=== PATIENT | female | born 1990 | race African-American/Black ===

== ENCOUNTER → 2017-02-02 | Outpatient (CLI) | payer OTHER ==
[~2017-02-02] MED LIST: NORC5TAB PO; PERC5TAB12 PO; PNV11TAB CHEW
[2017-02-02 09:13] LABS: BACTERIA, URINE OCC /hpf; BLOOD, URINE NEG (NEG); GLUCOSE,URINE NEG (NEG); KETONE, URINE NEG (NEG); MUCUS URINE FEW /lpf (OCC); NITRITE,URINE NEG (NEG); PH, URINE 6.5 (5.0-8.5); SQUAMOUS EPITHELIAL CELL URINE 4 /hpf (0-5); URINE COLOR YELLOW (YELLW/STRAW)
[2017-02-02 09:22] LABS: AUTOMATED NEUTROPHIL # 5.6 TH/MM3 (1.8-7.7); BASOPHIL % 0.5 % (0.0-2.0); EOSINOPHIL # 0.1 TH/MM3 (0-0.4); EOSINOPHIL % 1.1 % (0.0-4.0); HEMATOCRIT 35.8 % (35.0-46.0); HEMO FLAGS DIFF FINAL; LYMPH % 21.2 % (9.0-44.0); LYMPHOCYTE # 1.8 TH/MM3 (1.0-4.8); MEAN CELL VOLUME 87.7 FL (80.0-100.0); MEAN CORPUSCULAR HEMOGLOBIN 28.6 PG (27.0-34.0); MEAN CORPUSCULAR HGB CONC 32.6 % (32.0-36.0); MONO % 10.2 % (0.0-8.0); PLATELET COUNT 390 TH/MM3 (150-450); RED BLOOD COUNT 4.08 MIL/MM3 (4.00-5.30); WHITE BLOOD COUNT 8.3 TH/MM3 (4.0-11.0)
== END ==
LOC: CPRE 07:54
PROVIDERS: ATTEND Obstetrics & Gynecology
DX: Z01.812 Encounter for preprocedural laboratory examination (principal); O34.30 Maternal care for cervical incompetence, unspecified trimester
CPT/HCPCS: 36415; 81001; 85025

== ENCOUNTER → 2017-02-06 | Day surgery (SDC) | payer OTHER ==
[~2017-02-06] VITALS: Ht 152.4 cm; Wt 96.6 kg
[~2017-02-06] MED LIST changes: +CHLORHEXIDINE GLUCONATE 2 % 1 PACK (2 CLOTHS) TOPICAL PRN; +DO NOT ADM ANY ANTICOAGULANT DRUGS PRN; +INSULIN HUMAN REGULAR 1,000 UNITS/10 ML VIAL SQ PRN; +LACTATED RINGER'S 1000 ML IV PRN; +METOPROLOL TARTRATE 25 MG TAB PO PRN; -NORC5TAB PO; +PHENYLEPH/NS 1000 MCG/10 ML SYR IV ONE; +POVIDONE IODINE 5% (ANTISEPSIS KIT) 4 APPLICATIONS EACH NARE PRN; +SODIUM CHLORID 0.9% 500 ML IV PRN; +ceFAZolin 2 GM PREMIX 50 ML IV SCH
[2017-02-06 10:48] VITALS: BP 125/72; PULSE 102; RESP 16; TEMP 98; O2SAT 100
--- NOTE | 2017-02-06 13:09 | HHI.DCPOC ---
Discharge Care Plan Diagnosis: (1) History of delivery, currently Additional Problems Cerclage placement Report Symptoms to Your Doctor -Temperature above 100.5 degrees -Redness, of incision or excessive or foul smelling drainage -Unusual pain or calf pain -Increased vaginal bleeding -Painful or difficulty urinating -Feelings of extreme sadness or anxiety Goals to Promote Your Health * To prevent worsening of your condition and complications * To maintain your health at the optimal level Directions to Meet Your Goals Take your medications as prescribed Follow your dietary instruction Follow activity as directed Ensure plenty of rest for recovery Drink fluids for hydration Keep your appointments as scheduled Take your immunizations and boosters as scheduled If your symptoms worsen call your PCP, if no PCP go to Urgent Care Center or Emergency Room Smoking is Dangerous to Your Health. Avoid second hand smoke Call the 24-hour crisis hotline for domestic abuse at Iris Hidalgo MD Feb 06, 2017 13:09
--- NOTE | 2017-02-06 13:13 | HHI.PR ---
Immediate Post Op Note Procedure Date: Feb 06, 2017 Pre Op Diagnosis: (1) History of delivery, currently Post Op Diagnosis: (1) History of delivery, currently Surgeon: Iris Hidalgo Web Content Developer(s): Estefany Gonzáles MS [address] [facility] Procedure: Agee Cerclage Findings: Prior to procedure, closed cervix, 3 cm in length, soft. After procedure, maintained length, improved consistency. FCA before and after procedure documented with Doppler Complications: none Specimen(s) removed: none Estimated blood loss: min Anesthesia: Spinal Drains: None Fluids: 400ml LR IVF Patient to: PACU Patient Condition: Good Iris Hidalgo MD Feb 06, 2017 13:13
[2017-02-06 16:38] VITALS: BP 124/73; PULSE 107; RESP 20; TEMP 97.9; O2SAT 100
--- NOTE | 2017-02-07 10:45 | MP ---
cc: IRIS HIDALGO MD DATE OF SURGERY: 02/06/2017 PREOPERATIVE DIAGNOSIS: History of prior delivery. POSTOPERATIVE DIAGNOSIS: History of prior delivery. SURGEON Iris Hidalgo MD. AMMUNITION SPECIALIST: Nellie Gonzáles MS3,U [facility] staff PROCEDURE: Agee cerclage, exam under anesthesia INDICATION Patient has history of delivery desired prophylactic cerclage. ANESTHESIA Spinal ANTIBIOTICS: 50 grams IV given pre incision URINE OUTPUT: Urine output 50 mls clear yellow urine at the end the case. COMPLICATIONS None. PROPHYLAXIS: Sequential compression devices of the bilateral extremities FINDINGS Narrow maternal pelvis. Prior to procedure cervix was 2.5 cm in length, closed and soft consistency. After procedure maintained length with improved consistency. The cardiac activity, documented before and after procedure with Doppler. PROCEDURE IN DETAIL After informed consent the patient taken to operating room where spinal anesthesia was administered without complication. She was placed in dorsal lithotomy position in [facility] stirrups. The perineum was prepped and draped in normal sterile fashion. A Denis catheter was inserted using sterile technique. An exam anesthesia was performed. See intraoperative findings. A weighted speculum was placed in the vagina. Anterior retractor was placed to visualize the cervix. Prolene #1 suture was used to create a pursestring suture, immediately distal from the cervical vaginal junction. The sutures were placed at 12 o'clock to 9 o'clock, 9 o'clock to 6 o'clock and 6 o'clock to 3 o'clock and then once again to 12 o'clock. Multiple knots were placed. Suture strings were cut to approximately 3 cm in length. No bleeding was noted. The speculum and retractor were removed from the vagina. An exam was repeated, maintained cervical length.The patient placed in dorsal supine position. She tolerated the procedure well. Discussed complete pelvic rest, Percocet given an event that she would need short-term pain management. Iris Hidalgo MD PE/lali /1:17 PM /10:32 AM [facility]
== END | disposition home or self-care (01) ==
LOC: HSDC 09:51
PROVIDERS: ATTEND Obstetrics & Gynecology
DX: O09.219 Supervision of pregnancy with history of pre-term labor, unspecified trimester (principal)
CPT/HCPCS: 59320; 86850; 86900; 86901; J0690; J2370; J7120